=== PATIENT | female | born 1985 | race Caucasian/White ===

== ENCOUNTER 2019-01-13 11:52 | Inpatient (IN) | payer OTHER ==
[2019-01-13] MEDS ORDERED: OXYTOCIN/RINGERS LACTATE 1,000 ML IV PRN (15:19)
[2019-01-13] MEDS ORDERED: LR 1,000 ML IV PRN (15:19)
[2019-01-13] MEDS ORDERED: IBUPROFEN 600 MG TAB PO PRN (15:19)
[2019-01-13] MEDS ORDERED: EPSOM SALT 454 GM TP PRN (15:19)
[2019-01-13] MEDS ORDERED: LIDOCAINE 1% 300 MG/30 ML SDV SC PRN (15:19)
[2019-01-13] MEDS ORDERED: MISOPROSTOL 200 MCG TAB PR PRN (15:19)
[2019-01-13] MEDS ORDERED: OLIVE OIL 118 ML BTL MISC PRN (15:19)
[2019-01-13] MEDS ORDERED: LR 500 ML IV PRN (15:34)
[2019-01-13] MEDS ORDERED: PROMETHAZINE HCL 25 MG/ML INJ IVP ONE (15:36)
[2019-01-13 15:56] LABS: PLATELET COUNT 250 10^3/uL (150-400)
[2019-01-13] MEDS ORDERED: OXYTOCIN/RINGERS LACTATE 500 ML IV SCH (16:00)
--- NOTE | 2019-01-13 16:42 | GHP ---
[f rep st] HISTORY AND PHYSICAL DATE OF ADMISSION: 01/13/2019 ADMITTING DIAGNOSES: 1. Intrauterine at 40 weeks and 6 days. 2. Early, latent labor. HISTORY OF PRESENT ILLNESS: Patient is a 33-year-old, 1, para 0, at 40 weeks 6 days with estimated due date 01/07/2019 by LMP 04/04/2018, with IUI on 04/16/2018 and consistent with ultrasound done at 6 weeks and 1 day. The patient presents to Labor and Delivery with complaints of contractions. Patient states onset around 4 o'clock this morning. The contractions have progressively gotten closer, now every 3-4 minutes and more intense. The patient denies any vaginal bleeding or leakage of fluid. The patient states good movement noted. On admission, the patient was examined and found to be about 1 to 2 cm dilated, 70% effaced, posterior, and -2 station. The patient ambulated for about 2 hours and was re-examined with minimal cervical change. Patient states she is too uncomfortable to go home and would not get any rest. The patient has good care at [facility], and presented in her first trimester. 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 Genetic testing was done and negative. On 20-week ultrasound, anatomy was normal with an estimated weight in 70th percentile, with a posterior placenta without previa. The patient developed anemia of and is on iron. The patient received both the flu shot as well as the Tdap. GBS culture is negative. PAST OBSTETRIC HISTORY: This is the patient's first . GYNECOLOGIC HISTORY: Age of menarche 15. Cycles are regular every 28 days for 4 days. LMP 04/04/2018, and IUI on 04/16/2018. The patient does have a history of abnormal Pap smears. In 2009, she had a colposcopy, but no treatment. Patient was on OCPs, and discontinued them 09/2016. Most recent Pap smear 02/2017 was normal, negative HPV. 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 Patient denies exposure to any other STDs. CURRENT MEDICATIONS: Include [id number] vitamins, DHA, iron and Valtrex. ALLERGIES: No known drug allergies. PAST MEDICAL HISTORY: Anal fissures. She was followed by GI for some stomach issues and was celiac positive in blood, but biopsy was negative. PAST SURGICAL HISTORY: [place] teeth extraction. FAMILY HISTORY: Sister and father, anxiety. Mother, ovarian cancer diagnosed at 58 years of age, at 63 years of age secondary to mets to brain. The mom is BRCA negative. Maternal grandfather, breast and prostate cancer, in 60s. Maternal uncle, prostate cancer. SOCIAL HISTORY: Patient is and lives with her . 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 She denies any alcohol, tobacco, or illicit drug use currently. She does follow a gluten free diet. REVIEW OF SYSTEMS: 10-point review of systems is negative. Pertinent positives noted in the HPI. LABS: First trimester H and H, 12.3 and 36.6, platelets 225. Blood type O positive, antibody negative. RPR nonreactive. Rubella immune. Hepatitis B surface antigen negative. HIV negative. Trio screen positive for cystinuria, father of child tested and negative. TSH at 1.26. Urine drug screen, UA and urine culture all negative. Gonorrhea and chlamydia cultures negative. Single MSAFP negative. Innatal screen negative. Third trimester H and H, 10.8 and 32.6, platelets 289. 1-hour Glucola 115. Parvovirus nonimmune. Varicella immune. GBS culture negative. Tdap given 11/21/2018. Flu vaccine given 08/17/2018. PHYSICAL EXAMINATION: VITAL SIGNS: On admission vital signs are stable. Patient is afebrile at 37.0, heart rate 97, respirations 16, initial blood pressure was 135/94, then on repeat was 120/74. The patient is well-nourished, well-developed female. Alert and oriented x3. No apparent distress. SKIN: Warm , dry without rash. NEURO: Grossly intact. CARDIOVASCULAR: Regular rate and rhythm. LUNGS: Clear to auscultation bilaterally. ABDOMEN: Gravid, soft, nontender. PELVIC: On exam, was 1 to 2 cm dilated, 80% effaced, -2 station, and intact. No herpetic lesions noted. EXTREMITIES: Normal to inspection without calf tenderness or edema. Bedside ultrasound confirms cephalic presentation. heart tones are Category 1 with baseline of 140 beats per minute, positive accelerations, no decelerations, and moderate variability. On toco, she is zhang every 3 to 5 minutes. ASSESSMENT/PLAN: Patient is a 33-year-old, 1, para 0, at 40 weeks and 6 days' gestation who presents in early, latent labor 1. Admit to Labor and Delivery for expectant management since postdates. 2. Discussed morphine rest and patient accepted; 5 mg IV and 10 mg IM with IV Phenergan. 3. If contractions space out, will augment with Pitocin per protocol. 4. Group B Streptococcus culture is negative, no prophylactic antibiotics are needed. 5. Patient desires an epidural for pain control. /[id number]/MODL MTDD
[2019-01-13] MEDS ORDERED: OLIVE OIL 118 ML BTL ONE (16:46)
[2019-01-13] MEDS ORDERED: LIDOCAINE 1% 300 MG/30 ML SDV ONE (16:46)
[2019-01-13] MEDS ORDERED: AMMONIA AROMATIC 1 EACH AMP IH ONE (16:47)
[2019-01-13] MEDS ORDERED: OXYTOCIN 10 UNIT/ML VIAL ONE (16:47)
[2019-01-13] MEDS ORDERED: TERBUTALINE SULFATE 1 MG/ML VIAL ONE (16:47)
[2019-01-13] MEDS ORDERED: MISOPROSTOL 200 MCG TAB ONE (16:47)
[2019-01-13] MEDS ORDERED: PHENYLEPHRINE HCL 100 MCG/ML SYR IVP PRN (22:02)
[2019-01-13] MEDS ORDERED: ONDANSETRON 4 MG/2 ML VIAL IVP PRN (22:02)
[2019-01-13] MEDS ORDERED: fentaNYL 100 MCG/2 ML INJ ONE (22:08)
[2019-01-13] MEDS ORDERED: BUPIVACAINE 0.25% 10 ML SDV ONE (22:08)
[2019-01-13] MEDS ORDERED: fentaNYL 2MCG/ML/BUP 0.1% RTU 100 ML BAG EP ONE (22:08)
[2019-01-13] MEDS ORDERED: PHENYLEPHRINE HCL 100 MCG/ML SYR ONE (22:09)
--- NOTE | 2019-01-13 22:10 | PREANESOB ---
Obstetric Pre-Anesthesia Info - General Info Proposed Procedure: Labor epidural : 1 Para: 0 ANAHI: 01/07/19 Gestational Age: 40 week(s) and 6 day(s) - Info Status: Full Term Monitors: External FHR Pattern: Reassuring - Labor Status Cervical Dilation per last OB SVE: 5 Station per last OB SVE: -2 Rupture of Membranes Date: 01/13/19 (intact) PIH: No Magnesium Sulfate in Use: No Indications for Labor Analgesia: Pain Control Labor Epidural: Proposed Anesthesia Allergies/Adverse Reactions: Allergy/AdvReac Type Severity Reaction Status Date / Time No Known Allergies Allergy Unverified 01/13/19 12:04 Home Medications: Medication Instructions Recorded Iron/Vitamin B Comp W-C [Blood 1 tab PO DAILY 01/13/19 Builder Vit w/ Iron] Vit27&Calcium/Iron/FA 1 tab PO DAILY 01/13/19 [] valACYclovir [Valtrex (*)] 1 tab PO DAILY 01/13/19 Visit Medications: Generic Name Dose Route Start Last Admin Trade Name Freq PRN Reason Stop Dose Admin Lactated Ringer's 1,000 mls @ 0 mls/hr 01/13/19 15:19 Lr IV 01/14/19 15:18 PRN PRN SEE PROTOCOL CONDITIONS Protocol Per Protocol Oxytocin/Lactated Ringer's 1,000 mls @ 125 mls/hr 01/13/19 15:19 Pitocin 20 Units/Lr (Premix) IV PRN PRN Post bleeding Lactated Ringer's 500 mls @ 500 mls/hr 01/13/19 15:34 Lr IV 01/14/19 15:34 PRN PRN Maternal Hypotension Oxytocin/Lactated Ringer's 500 mls @ 0 mls/hr 01/13/19 16:00 Pitocin 30 Units/Lr (Premix) IV 07/12/19 15:59 CONT CRISTINA Protocol Per Protocol Ibuprofen 600 mg 01/13/19 15:19 Motrin PO ONCE PRN post , pain Lidocaine HCl 300 mg 01/13/19 15:19 Lidocaine Hcl 1% SC 07/12/19 15:18 ONCE PRN episiotomy Magnesium Sulfate 454 gm 01/13/19 15:19 Epsom Salt TP 07/12/19 15:18 Q1H PRN perineal discomfort Misoprostol 800 - 1,000 mcg 01/13/19 15:19 Cytotec NV ONCE PRN Vaginal Atony/Bleeding Sargent Oil 118 ml 01/13/19 15:19 Sweet Oil MISC 07/12/19 15:18 ONCE PRN perineal massage Discontinued Medications Generic Name Dose Route Start Last Admin Trade Name Freq PRN Reason Stop Dose Admin Ammonia (Aromatic Spirit) Confirm 01/13/19 16:47 Ammonia Aromatic Administered 01/13/19 16:48 Dose 1 each IH .STK-MED ONE Lidocaine HCl Confirm 01/13/19 16:46 Lidocaine Hcl 1% Administered 01/13/19 16:47 Dose 300 mg .ROUTE .STK-MED ONE Misoprostol Confirm 01/13/19 16:47 Cytotec Administered 01/13/19 16:48 Dose 1,000 mcg .ROUTE .STK-MED ONE Morphine Sulfate 5 mg 01/13/19 17:00 01/13/19 16:20 Morphine IVP 01/13/19 17:01 5 mg ONCE ONE Administration Morphine Sulfate 10 mg 01/13/19 17:00 01/13/19 16:20 Morphine IM 01/13/19 17:01 10 mg ONCE ONE Administration Sargent Oil Confirm 01/13/19 16:46 Sweet Oil Administered 01/13/19 16:47 Dose 118 ml .ROUTE .STK-MED ONE Oxytocin Confirm 01/13/19 16:47 Pitocin Administered 01/13/19 16:48 Dose 40 unit .ROUTE .STK-MED ONE Promethazine HCl 25 mg 01/13/19 15:36 01/13/19 16:21 Phenergan IVP 01/13/19 15:37 25 mg ONCE ONE Administration Terbutaline Sulfate Confirm 01/13/19 16:47 Brethine Administered 01/13/19 16:48 Dose 1 mg .ROUTE .STK-MED ONE - Anesthesia History Response to Local Anesthetics: Normal Anesthesia & Operative History: Other (Specify) (only EGD in past) Family Anesthesia History: Not Applicable - Social History Substance Use/Abuse: Denies - Vital Signs Height/Weight (Nursing): Height 175.26 cm Weight 87.543 kg - Focused Exam Neck exam: FROM Mallampati Score: Class 1 Mouth exam: normal dental/mouth exam Pulmonary: clear to auscultation Cardiovascular: regular rate and rhythym Labs: 01/13/19 15:45 Patient ABO/Rh O POSITIVE 01/13/19 15:45 - Plan Anesthetic Plan: labor CALLI Consent Signed and on Chart: Yes Patient/Guardian Understands and Agrees to Plan: Yes
[2019-01-13] MEDS ORDERED: LR 500 ML IV SCH (22:30)
[2019-01-13] MEDS ORDERED: fentaNYL 2MCG/ML/BUP 0.1% RTU 100 ML EP SCH (22:30)
--- NOTE | 2019-01-13 23:02 | POSTANESTH ---
Post Anesthetic Evaluation Cardiovascular Status: Normal, Stable Respiratory Status: Normal, Stable Level of Consciousness/Mental Status: Can Participate in Eval Pain Control: Adequate, Prn Tx Ordered Nausea/Vomiting Control: Adequate, Prn Tx Ordered Complications Possibly Related to Anesthesia: None Noted (Patient reports 0/10 pain with contractions (was 10/10 prior to CALLI). Decreased sensation to light touch to T10 B, able to move B LE though they are somewhat weak.)
--- NOTE | 2019-01-14 04:21 | OBPROG ---
Labor Progress Note Assessment/Plan: Assessment: 33 y/o at 41 weeks gestation now in active labor Plan: Pt is s/p morphine rest Pt has progressed nicely on her own; s/p epidural placed at 2230 SVE: 8/100/-1 with SROM at 0345 - moderate amount of clear fluid noted FHTs - Category II tracing, intermittent variable decels noted but overall reassuring Continue expectant management Anticipate 01/14/19 04:21 Subjective/Intrapartum Course: 01/14/19 04:26 Pt is sleeping; she is comfortable s/p epidural with no complaints. Objective: 01/13/19 15:45 Patient ABO/Rh O POSITIVE 01/13/19 15:45 - SVE Dilation (cm): 8 Effacement (%): 100 Station: -1 Membranes: AROM Amniotic Fluid Color: Clear - Contraction Pattern Assessment Current Contraction Pattern: Regular (q3-4 min) - FHR Assessment [place] FHR (bpm): 145 FHR Pattern Variability: Moderate FHR Category: 2 (intermittent variable decels noted) - AP Antepartum Course: 01/14/19 04:29 Pt with h/o HSV2 on Valtrex since 36 weeks; anemia of , on iron; h/o anal fissures. Oxytocin Orders Assessment - Pre-Induction/Augmentation Assessment Gestational Age: 40 week(s) and 6 day(s) ICD10 Worksheet Patient Problems: Problems Problem Status Onset Normal labor Acute - ICD10 Problem Qualifiers (1) Normal labor
--- NOTE | 2019-01-14 07:11 | OBPROG ---
Labor Progress Note Assessment/Plan: Assessment: 33 y/o at 41 weeks gestation now in active labor Plan: Pt is having pain with her ctx's; will notify anesthesiologist and see if rate can be increased SVE: complete/+1 Will try to get pt comfortable and then start pushing FHTs - Cat II tracing with intermittent variable decels Anticipate 01/14/19 07:11 Subjective/Intrapartum Course: 01/14/19 04:26 Pt is sleeping; she is comfortable s/p epidural with no complaints. 01/14/19 07:09 Pt is c/o pain "all over her abdomen" with her ctx's. Objective: 01/13/19 15:45 Patient ABO/Rh O POSITIVE 01/13/19 15:45 - SVE Dilation (cm): 10 Effacement (%): 100 Station: +1 Membranes: AROM Amniotic Fluid Color: Clear Dilation Complete Date: 01/14/19 Dilation Complete Time: 07:05 - Contraction Pattern Assessment Current Contraction Pattern: Regular (q3-4 min) - FHR Assessment [place] FHR (bpm): 160 FHR Pattern Variability: Moderate FHR Category: 2 (intermittent variable decels noted) - AP Antepartum Course: 01/14/19 04:29 Pt with h/o HSV2 on Valtrex since 36 weeks; anemia of , on iron; h/o anal fissures. Oxytocin Orders Assessment - Pre-Induction/Augmentation Assessment Gestational Age: 40 week(s) and 6 day(s) ICD10 Worksheet Patient Problems: Problems Problem Status Onset Normal labor Acute - ICD10 Problem Qualifiers (1) Normal labor
[2019-01-14] MEDS: ACETAMINOPHEN 500 MG TAB PO SCH ×2 (07:55→14:09)
--- NOTE | 2019-01-14 08:27 | OBPROG ---
Labor Progress Note Assessment/Plan: Assessment: Plan: Subjective/Intrapartum Course: 01/14/19 04:26 Pt is sleeping; she is comfortable s/p epidural with no complaints. 01/14/19 07:09 Pt is c/o pain "all over her abdomen" with her ctx's. 01/14/19 08:25 patient complete and pushing. had epidural rebolused. occasional decels with pushing. positive scalp stimulation. good maternal effort just trying to sort out how to push. pelvis feels adequate Objective: 01/13/19 15:45 Patient ABO/Rh O POSITIVE 01/13/19 15:45 - SVE Dilation (cm): 10 Effacement (%): 100 Station: +2 Membranes: AROM Amniotic Fluid Color: Clear Dilation Complete Date: 01/14/19 Dilation Complete Time: 07:05 - Contraction Pattern Assessment Current Contraction Pattern: Regular (q3-4 min) - FHR Assessment [place] FHR Category: 2 - AP Antepartum Course: 01/14/19 04:29 Pt with h/o HSV2 on Valtrex since 36 weeks; anemia of , on iron; h/o anal fissures. Oxytocin Orders Assessment - Pre-Induction/Augmentation Assessment Gestational Age: 40 week(s) and 6 day(s) ICD10 Worksheet Patient Problems: Problems Problem Status Onset Normal labor Acute
[2019-01-14] MEDS ORDERED: oxyCODONE IR 5 MG TAB PO PRN (10:00)
[2019-01-14] MEDS ORDERED: SIMETHICONE 80 MG TAB CHEW PO PRN (10:00)
[2019-01-14] MEDS ORDERED: HYDROCORTISONE 0.5% CREAM TP PRN (10:00)
--- NOTE | 2019-01-14 10:05 | OBDEL ---
Info Type: Vaginal Presentation at Delivery: Vertex L&D Analgesia/Anesthesia Type: Epidural GBS+: No Intrapartum Medications: Generic Name Dose Route Start Last Admin Trade Name Autumn PRN Reason Stop Dose Admin Acetaminophen 1,000 mg 01/14/19 08:00 01/14/19 07:55 Tylenol PO 07/13/19 07:59 1,000 mg Q8HRS CRISTINA Administration Lactated Ringer's 1,000 mls @ 0 mls/hr 01/13/19 15:19 01/14/19 03:52 Lr IV 01/14/19 15:18 1,000 mls PRN PRN Administration SEE PROTOCOL CONDITIONS Protocol Per Protocol Oxytocin/Lactated Ringer's 500 mls @ 0 mls/hr 01/13/19 16:00 01/14/19 08:51 Pitocin 30 Units/Lr (Premix) IV 07/12/19 15:59 500 mls CONT CRISTINA Administration Protocol Per Protocol Lactated Ringer's 500 mls @ 0 mls/hr 01/13/19 22:30 01/13/19 22:05 Lr IV 07/12/19 22:29 500 mls CONT CRISTINA Administration As Directed Ondansetron HCl 4 mg 01/13/19 22:02 01/13/19 22:40 Zofran IVP 01/14/19 22:01 4 mg Q4HRS PRN Administration Nausea/Vomiting, Can't Take PO Discontinued Medications Generic Name Dose Route Start Last Admin Trade Name Autumn PRN Reason Stop Dose Admin Morphine Sulfate 5 mg 01/13/19 17:00 01/13/19 16:20 Morphine IVP 01/13/19 17:01 5 mg ONCE ONE Administration Morphine Sulfate 10 mg 01/13/19 17:00 01/13/19 16:20 Morphine IM 01/13/19 17:01 10 mg ONCE ONE Administration Promethazine HCl 25 mg 01/13/19 15:36 01/13/19 16:21 Phenergan IVP 01/13/19 15:37 25 mg ONCE ONE Administration - Hospital Course Intrapartum: 01/14/19 04:26 Pt is sleeping; she is comfortable s/p epidural with no complaints. 01/14/19 07:09 Pt is c/o pain "all over her abdomen" with her ctx's. 01/14/19 08:25 patient complete and pushing. had epidural rebolused. occasional decels with pushing. positive scalp stimulation. good maternal effort just trying to sort out how to push. pelvis feels adequate 01/14/19 10:38 started pitocin due to inadequate contractions strength. good maternal effort. Indications for Delivery: Spontaneous Labor Vaginal Delivery - Delivery Provider Delivery Physician/CNM: Susi Gabriel - Labor and Delivery Onset of Contractions Date: 01/13/19 Onset of Contractions Time: 07:00 Onset of Contractions Type: Augmented Rupture of Membranes Date: 01/13/19 (intact) Rupture of Membranes Time: 03:45 Amniotic Fluid Color: Clear Dilation Complete Date: 01/14/19 Dilation Complete Time: 07:05 Placenta Delivery Date: 01/14/19 Placenta Delivery Time: 09:38 Total Hours of Labor: 26 Laceration: 2nd Degree, Other (Specify) (vaginal sulcus) Repair: 3-0 Vaginal Sponge Count Correct: Yes Vaginal Needle Count Correct: Yes Vaginal Sweep Performed: Yes EBL: 300 Delivery Events: Nuchal Cord (x1) - Medications Labor Augmentation/Induction Methods Used: Pitocin Labor Augmentation/Induction Indication: Inadequate Contraction Strength Data ANAHI: 01/07/19 Gestational Age: 41 week(s) and 4 day(s) [place] Delivery Date: 01/14/19 Delivery Time: 09:33 Sex of Infant: Female Score (1 Min): 8 Score (5 Min): 9 ICD10 Worksheet Patient Problems: Problems Problem Status Onset Delivery normal Acute Normal labor Acute
[2019-01-14] MEDS ORDERED: POLYETHYLENE GLYCOL 3350 17 GM PKT PO SCH (16:15)
[2019-01-14] MEDS: ACETAMINOPHEN 325 MG TAB PO PRN (16:21)
[2019-01-14] MEDS: IBUPROFEN 600 MG TAB PO PRN (17:22)
--- NOTE | 2019-01-14 17:30 | POSTANESTH ---
Post Anesthetic Evaluation Cardiovascular Status: Normal, Stable, Similar to Pre-Op Cond Respiratory Status: Normal, Stable, Similar to Pre-op Cond. Level of Consciousness/Mental Status: Can Participate in Eval, Alert and Oriented Pain Control: Adequate, Prn Tx Ordered Nausea/Vomiting Control: Adequate, Prn Tx Ordered Complications Possibly Related to Anesthesia: None Noted Notes: Pt seen and examined, block has resolved, no apparent ill effects. Able to ambulate without difficulty. She denies n/v/YANEZ/pruritis. Back site c/d/i, no e /e/e.
[2019-01-15] MEDS: IBUPROFEN 600 MG TAB PO PRN ×4 (00:35→18:37)
[2019-01-15] MEDS: ACETAMINOPHEN 325 MG TAB PO PRN ×4 (00:35→18:37)
[2019-01-15] MEDS: POLYETHYLENE GLYCOL 3350 17 GM PKT PO PRN ×2 (01:24→08:48)
[2019-01-15] MEDS: ACETAMINOPHEN 500 MG TAB PO SCH (02:03)
--- NOTE | 2019-01-15 09:15 | OBPP ---
Progress Note Assessment/Plan: Assessment: PPD 1 s/p sore bottom no sleep Plan: Routine care, sitz baths, just had oxy, cont ibu/tyl 01/15/19 09:11 Subjective/ Course: 01/15/19 09:12 Pt doing ok - hasn't slept and feels very worn out and body stress with shaking and feeling weak. Bottom very sore and increased discomfort from position in bed. urinating fine and bleeding normal. baby has latched several times and seems to bite - per pt. Objective: 01/13/19 15:45 Patient ABO/Rh O POSITIVE 01/13/19 15:45 Temp Pulse Resp BP Pulse Ox 36.9 C 84 19 115/71 96 01/15/19 08:00 01/15/19 08:00 01/15/19 08:00 01/15/19 08:00 01/15/19 08:00 Uterine Position/Fundal Height: Umbilicus -1 Uterine Tone: Firm Physical Exam - Physical Exam Abdomen: non-tender, soft, other (FF at umb -1, digital exam of perineum and vagina - no palpable hematoma or mass) Extremities: non-tender, pedal edema (minimal) Skin: normal color, warm/dry Neuro/Psych: alert, normal mood/affect
--- NOTE | 2019-01-15 13:14 | SOAPPROG ---
SOAP Progress Note Assessment/Plan: Assessment: Plan: Subjective: Called by RN to see patient complaining of 'muscle weakness'. Upon my arrival, the patient states that she figured out that it is not a case of muscle weakness , but muscle stretching, associated with the labor process. She reports no muscle weakness, and during the exam she demonstrates no loss of temperature sensation at thigh level, bilaterally. I reassured the patient. There do not seem to be any anesthesia complications present at this time. Objective: Vital Signs Temp Pulse Resp BP Pulse Ox 36.9 C 84 19 115/71 96 01/15/19 08:00 01/15/19 08:00 01/15/19 08:00 01/15/19 08:00 01/15/19 08:00 Laboratory Results 01/13/19 15:45 01/14/19 01/15/19 01/16/19 05:59 05:59 05:59 Output Total 600 Balance -600 ICD10 Worksheet Patient Problems: Problems Problem Status Onset Delivery normal Acute Normal labor Acute
[2019-01-16] MEDS: ACETAMINOPHEN 325 MG TAB PO PRN ×3 (00:35→12:34)
[2019-01-16] MEDS: IBUPROFEN 600 MG TAB PO PRN ×5 (00:35→23:59)
[2019-01-16] MEDS: DOCUSATE SODIUM 100 MG CAP PO PRN (00:35)
[2019-01-16] MEDS: POLYETHYLENE GLYCOL 3350 17 GM PKT PO PRN (09:15)
--- NOTE | 2019-01-16 14:11 | OBPP ---
Progress Note Assessment/Plan: Assessment:33 you PPD#2 s/p with suboptimally controlled perineum discomfort. Otherwise doing well. Plan: Discussed ways to optimize pain control and other measures to assist with comfort. Will adjust acetominophen and ibuprofen dosing to optimize coverage. Anticipate dc home/boarding tomorrow. Elisabeth Arellano MD, [facility] 01/16/19 16:31 Subjective/ Course: 01/15/19 09:12 Pt doing ok - hasn't slept and feels very worn out and body stress with shaking and feeling weak. Bottom very sore and increased discomfort from position in bed. urinating fine and bleeding normal. baby has latched several times and seems to bite - per pt. 01/16/19 16:34 Pt doing well, but high anxiety about pain control. Is having difficulty moving around and sitting due to perineum discomfort. Feels that she strained a muscle in her inner right thigh during pushing, which has contributed to her discomfort. Had 2 BMs today - soft, no issues. Voiding without difficulty - some anxiety about some incontinence when bladder gets over full today. Min- mod lochia today. going well. Baby under bili lights currently. 01/16/19 16:37 Objective: 01/13/19 15:45 Patient ABO/Rh O POSITIVE 01/13/19 15:45 Temp Pulse Resp BP Pulse Ox 36.4 C 92 16 130/78 H 96 01/16/19 09:26 01/16/19 09:26 01/16/19 09:26 01/16/19 09:26 01/16/19 09:26 gen - pleasant, NAD, though is moving around very gingerly in bed. CV - RRR chest - CTAB abd - soft, fundus firm at u-2, + BS ext - trace edema, no calf tenderness perineum - repair intact, min edema, + tenderness on L perineum > R, but with insertion of a finger into the vagina about 2-3 cm (all that pt would allow), no evidence of a vulvar hematoma. Uterine Position/Fundal Height: Umbilicus -2 Uterine Tone: Firm
[2019-01-16] MEDS: ACETAMINOPHEN 500 MG TAB PO SCH (18:40)
[2019-01-17] MEDS: IBUPROFEN 600 MG TAB PO PRN ×2 (06:02→12:18)
[2019-01-17] MEDS: ACETAMINOPHEN 500 MG TAB PO SCH ×2 (06:29→14:21)
[2019-01-17 09:26] VITALS: BP 131/89
--- NOTE | 2019-01-17 10:48 | OBGCSDC ---
General Delivery Information - General Info : 1 Para: 1 Abortions: 0 Type: Vaginal L&D Analgesia/Anesthesia Type: Epidural Admission Date: 01/14/19 Labs: Patient ABO/Rh O POSITIVE 01/13/19 15:45 Hct 37.1 % (38.0-47.0) L 01/13/19 15:45 - Hospital Course Antepartum: 01/14/19 04:29 Pt with h/o HSV2 on Valtrex since 36 weeks; anemia of , on iron; h/o anal fissures. Intrapartum: 01/14/19 04:26 Pt is sleeping; she is comfortable s/p epidural with no complaints. 01/14/19 07:09 Pt is c/o pain "all over her abdomen" with her ctx's. 01/14/19 08:25 patient complete and pushing. had epidural rebolused. occasional decels with pushing. positive scalp stimulation. good maternal effort just trying to sort out how to push. pelvis feels adequate 01/14/19 10:38 started pitocin due to inadequate contractions strength. good maternal effort. : 01/15/19 09:12 Pt doing ok - hasn't slept and feels very worn out and body stress with shaking and feeling weak. Bottom very sore and increased discomfort from position in bed. urinating fine and bleeding normal. baby has latched several times and seems to bite - per pt. 01/16/19 16:34 Pt doing well, but high anxiety about pain control. Is having difficulty moving around and sitting due to perineum discomfort. Feels that she strained a muscle in her inner right thigh during pushing, which has contributed to her discomfort. Had 2 BMs today - soft, no issues. Voiding without difficulty - some anxiety about some incontinence when bladder gets over full today. Min- mod lochia today. going well. Baby under bili lights currently. 01/16/19 16:37 Vaginal - Delivery Provider Delivery Physician/CNM: Susi Gabriel - Diagnosis Labor: Augmented Amniotic Fluid Color: Clear Laceration: 2nd Degree, Other (Specify) (vaginal sulcus) Repair: 3-0 Delivery Events: Nuchal Cord (x1) - Delivery EBL: 300 Data ANAHI: 01/07/19 Gestational Age: 41 week(s) and 3 day(s) [place] Delivery Date: 01/14/19 Delivery Time: 09:33 Sex of Infant: Female Weight (gm): 3196 g Score (1 Min): 8 Score (5 Min): 9 Discharge Information - Discharge Information Prescriptions: oxyCODONE IR [Oxycodone Ir (*)] 5 - 10 mg PO Q4HRS PRN #12 tab PRN Reason: Pain, Severe Able To Take Po Condition: Good Instruction/Follow Up: See Instruction Sheet, Four Weeks, Six Weeks (Four wks for mood check, Six weeks PP visit.)
--- NOTE | 2019-01-17 10:48 | OBPP ---
Progress Note Assessment/Plan: Assessment: PPD3 s/p . Routine cares - OK for dc home today. Rx for oxycodone PRN. F/u with our office 4 wks mood check and 6 wks PP. Rh pos, Rubella immune. JM Subjective/ Course: 01/15/19 09:12 Pt doing ok - hasn't slept and feels very worn out and body stress with shaking and feeling weak. Bottom very sore and increased discomfort from position in bed. urinating fine and bleeding normal. baby has latched several times and seems to bite - per pt. 01/16/19 16:34 Pt doing well, but high anxiety about pain control. Is having difficulty moving around and sitting due to perineum discomfort. Feels that she strained a muscle in her inner right thigh during pushing, which has contributed to her discomfort. Had 2 BMs today - soft, no issues. Voiding without difficulty - some anxiety about some incontinence when bladder gets over full today. Min- mod lochia today. going well. Baby under bili lights currently. 01/16/19 16:37 01/17/19 11:44 Feeling much better this morning about her perineal pain, about BF, about everything. Was able to get some more sleep last night and feeling less anxious today. Feels ready for home. Having BM's w Miralax, BF going well, pain controlled without narcotics - but would like a script for those for home PRN. Objective: 01/13/19 15:45 Patient ABO/Rh O POSITIVE 01/13/19 15:45 Temp Pulse Resp BP Pulse Ox 36.3 C 83 19 131/89 H 98 01/17/19 08:00 01/17/19 08:00 01/17/19 08:00 01/17/19 08:00 01/17/19 08:00 Uterine Position/Fundal Height: Umbilicus -2 Uterine Tone: Firm
[2019-01-17] MEDS: DOCUSATE SODIUM 100 MG CAP PO PRN (12:18)
[2019-01-17] MEDS: POLYETHYLENE GLYCOL 3350 17 GM PKT PO PRN (12:24)
== END 2019-01-17 15:00 | disposition home or self-care (01) | DRG 806 ==
LOC: FLD 11:52 → FOB 01-14 13:49 → OBSVTOIN 01-14 15:19 → FOB 01-15 16:47
PROVIDERS: ADMIT Obstetrics & Gynecology; ATTEND Obstetrics & Gynecology
PROC: 10E0XZZ Delivery of Products of Conception, External Approach (ICD-10-PCS; principal; 2019-01-14)
PROC: 0KQM0ZZ Repair Perineum Muscle, Open Approach (ICD-10-PCS; principal; 2019-01-14)
DX: O62.0 Primary inadequate contractions (principal); Z37.0 Single live birth; O98.52 Other viral diseases complicating childbirth; B00.9 Herpesviral infection, unspecified; Z3A.40 40 weeks gestation of pregnancy; O48.0 Post-term pregnancy; O70.1 Second degree perineal laceration during delivery; O69.82X0 Labor and delivery complicated by other cord entanglement, without compression, not applicable or unspecified
CPT/HCPCS: J2270; J2370; J2405; J2550; J2590; J3010; J3105

== ENCOUNTER → 2019-02-14 | Outpatient (CLI) | payer OTHER | LOC: FLACT 13:14 | PROVIDERS: ATTEND Obstetrics & Gynecology | DX: Z39.1 Encounter for care and examination of lactating mother (principal) | CPT/HCPCS: G0463 ==